=== PATIENT | male | born 1940 | race Caucasian/White ===

== ENCOUNTER 2017-02-21 08:54 | Day surgery (SDC) | payer MEDICARE, BC ==
[2017-02-20 08:24] VITALS: BMI 33.0
[~2017-02-21 08:54] MED LIST: LACTATED RINGERS 1,000 ML IV SCH
[2017-02-21 09:53] VITALS: RESP 18; TEMP 98.1
[2017-02-21] MEDS ORDERED: LIDOCAINE 1% 20 ML VIAL (10MG/ML) FOR IV START INTRADERMA ONE (10:00)
[2017-02-21] MEDS ORDERED: PROPOFOL 10 MG/ML 20 ML VIAL IV ONE (10:17)
[2017-02-21 10:58] VITALS: BP 151/75; PULSE 47
--- NOTE | 2017-02-21 11:17 | P.PCN ---
Date of Procedure: 02/21/17 Preoperative Diagnosis: Postoperative Diagnosis: Procedure(s) Performed: Procedure: Esophagogastroduodenoscopy and biopsy. Preoperative diagnosis: Dysphagia and history of obstructive episodes in October of this year. Postoperative diagnosis: 1. No obvious esophagitis or complicated reflux disease. 2. Mild gastritis and duodenitis. Preparation sedation: Was provided by anesthesia. Brief clinical history: The patient is a 76-year-old male who had issues with dysphagia for several years and in October of this year he presented with obstructive dysphagia with the piece of steak caught in his esophagus while having a meal. This evaluation is to assess for esophageal strictures or other pathology. Procedure: With the patient on his left lateral decubitus position and after informed consent and adequate sedation, the Olympus GIF-100 60 video upper endoscope was used and was passed through the cricopharyngeus down the esophagus. GE junction was around 43 cm from the incisors and there was no hiatal hernia. The esophagus did not show any evidence of esophagitis or complicated reflux disease. The endoscope was then passed into the stomach which was insufflated with air and inspected in detail including the retroflex view in the cardia. There was some mottling and erythema in the antrum but no ulcers or erosions. Pyloric channel did not show any ulcers. Duodenal bulb, post bulbar area and descending duodenum was examined and that showed some mottling erythema and minimal friability but no ulcers or erosions. I obtained biopsies from the duodenum, antrum and esophagus then the endoscope was withdrawn. The patient tolerated the procedure well. Plan: The patient was reassured. Will await biopsy results. Consideration can be given for further evaluation of possible motility disorder depending on his progress and especially if there is nutritional compromise in the future. I will keep you updated on his progress. Implants: Indications for Procedure: Operative Findings: Description of Procedure:
== END 2017-02-21 11:41 | disposition home or self-care (01) ==
LOC: ORWHC2ENDO 08:54
DX: R13.10 Dysphagia, unspecified (principal); K29.50 Unspecified chronic gastritis without bleeding; K29.80 Duodenitis without bleeding; Z79.82 Long term (current) use of aspirin; Z79.899 Other long term (current) drug therapy
CPT/HCPCS: 88305; 88342; 43239; J2704